=== PATIENT | male | born 1985 | race Caucasian/White ===

== ENCOUNTER 2023-11-25 05:24 | Emergency (ER) | payer MEDICAID ==
[~2023-11-25] VITALS: Ht 182.9 cm; Wt 79.5 kg
[2023-11-25 05:26] VITALS: TEMP 98.1
[2023-11-25] MEDS: normal saline 1000ml 1,000 ML IV ONE ×2 (05:50→06:15)
[2023-11-25] MEDS: ondansetron/PF 4mg/2ml inj IV ONE (05:54)
[2023-11-25 05:55] LABS: BASOPHILS % (AUTO) 0.7 % (0-1); EOSINOPHILS % (AUTO) 1.1 % (0-6); HEMATOCRIT 42.5 % (42.0-52.0); LYMPHOCYTES # (AUTO) 0.9 X10'3 (1.1-4.8); LYMPHOCYTES % (AUTO) 22.8 % (21-51); MEAN CORPUSCULAR HGB CONC 32.9 g/dL (33.0-36.5); MEAN CORPUSCULAR VOLUME 106.4 FL (78-98); MEAN PLATELET VOLUME 9.9 FL (7.4-10.4); MONOCYTES # (AUTO) 0.8 X10'3 (0-0.9); MONOCYTES % (AUTO) 19.8 % (2-12); NEUTROPHILS # (AUTO) 2.2 X10'3 (1.8-7.7); NEUTROPHILS % (AUTO) 55.6 % (42-75); PLATELET COUNT 94 X10'3 (140-440); RED CELL DISTRIBUTION WIDTH 13.6 % (11.5-14.5); WHITE BLOOD COUNT 3.9 X10'3 (4.5-11.0)
[2023-11-25] MEDS: LORazepam 2 mg/ml vial IV ONE (05:55)
[2023-11-25 06:04] LABS: ALBUMIN 4.5 G/DL (3.4-5.0); ANION GAP 21 (8-16); BLOOD UREA NITROGEN 7 MG/DL (7-18); BUN/CREATININE RATIO 6.5 (10.0-20.0); CALCIUM 10.3 MG/DL (8.5-10.1); CHLORIDE 95 MMOL/L (99-107); CREATININE 1.07 MG/DL (0.60-1.10); GLUCOSE 118 MG/DL (70-104); POTASSIUM 3.5 MMOL/L (3.5-5.1); SODIUM 134 MMOL/L (135-145); TOTAL CARBON DIOXIDE 18.1 MMOL/L (24-32); eCRCL 101 ML/MIN; eGFR 77 ML/MIN
[2023-11-25] MEDS: levetiracetam inj 1,000 MG in normal saline 100ml IV soln 100 ML IV ONE (06:10)
[2023-11-25 06:26] LABS: LARGE PLATELETS FEW; PLATELET ESTIMATE DECREASED; TOTAL CELLS COUNTED 100
--- NOTE | 2023-11-25 07:02 | NUR ---
PT READY FOR DC. WAITING FOR MEAL TRAY.
[2023-11-25] MEDS ORDERED: KEP500T PO (08:36)
--- NOTE | 2023-11-25 08:40 | NUR ---
to print D/C script for Lenny for prior to patient D/C.
[2023-11-25 09:29] VITALS: BP 165/76; PULSE 110; RESP 18; O2SAT 99
[2023-11-25] MEDS: levetiracetam 250mg tablet PO ONE (09:29)
== END 2023-11-25 09:32 | disposition home or self-care (01) ==
LOC: ER 05:25
DX: R56.9 Unspecified convulsions (principal); Z79.899 Other long term (current) drug therapy
CPT/HCPCS: 80048; 83735; 85007; 85025; 96361; 96374; 96375; 99284; J1953; J2060; J2405; J7030; 96365